=== PATIENT | male | born 1990 ===

== ENCOUNTER 2025-05-05 18:44 | Emergency (ER) | payer MEDICAID, OTHER ==
[2025-05-05 19:24] LABS: BASOPHILS ABSOLUTE AUTO 0.05 K/uL (0.00-0.10); BASOPHILS PERCENT AUTO 0.4 % (0.1-1.3); EOSINOPHILS ABSOLUTE AUTO 0.12 K/uL (0.00-0.40); EOSINOPHILS PERCENT AUTO 0.8 % (0.0-5.4); IMMATURE GRAN ABSOLUTE AUTO 0.06 K/uL (0.00-0.23); IMMATURE GRAN PERCENT AUTO 0.4 % (0.0-0.7); LYMPHOCYTES ABSOLUTE AUTO 1.54 K/uL (0.8-3.3); LYMPHOCYTES PERCENT AUTO 10.8 % (11.4-47.7); MONOCYTES ABSOLUTE AUTO 0.70 K/uL (0.20-0.90); MONOCYTES PERCENT AUTO 4.9 % (3.3-12.6); NEUTROPHILS ABSOLUTE AUTO 11.81 K/uL (1.0-7.6); NEUTROPHILS PERCENT AUTO 82.7 % (40.0-78.1); PLATELET COUNT,PLT 287 K/uL (130-375); RED BLOOD CELL COUNT 4.31 M/uL (4.14-5.76); WHITE BLOOD CELL COUNT,WBC 14.3 K/uL (3.2-11.0)
[2025-05-05] MEDS: Ondansetron 4 MG/2 ML SDV IVPUSH ONE (19:27)
[2025-05-05] MEDS: fentaNYL 100 MCG/2 ML SDV IVPUSH ONE (19:27)
[2025-05-05 19:28] LABS: APPEARANCE,URINE CLEAR (CLEAR); GLUCOSE,URINE NEGATIVE (NEGATIVE); OCCULT BLOOD,URINE NEGATIVE (NEGATIVE)
[2025-05-05 19:40] LABS: BLOOD UREA NITROGEN,BUN 9.0 mg/dL (7-18); CARBON DIOXIDE,CO2 28.0 mmol/L (21-32); CHLORIDE,CL 103.0 mmol/L (100-108); CREATININE 0.8 mg/dL (0.8-1.3); EST CRCL DRUG DOSING (CG) 156.97 mL/min; ESTIMATED GFR 120.0 mL/min (>60); GLUCOSE RANDOM 107.0 mg/dL (74-106); POTASSIUM,K 3.6 mmol/L (3.6-5.2); SODIUM,NA 138.0 mmol/L (140-148)
[2025-05-05] MEDS: Iopamidol 612 MG/ML 100 ML Bottle IV SCH (20:00)
[2025-05-05] MEDS ORDERED: Bacitracin Oint 1 GM U/D Packet TOP ONE (20:34)
== END 2025-05-05 21:28 | disposition home or self-care (01) ==
LOC: JP.ED 18:44
DX: S42.111A Displaced fracture of body of scapula, right shoulder, initial encounter for closed fracture (principal); S30.1XXA Contusion of abdominal wall, initial encounter; V29.99XA Rider (driver) (passenger) of other motorcycle injured in unspecified traffic accident, initial encounter
CPT/HCPCS: 36415; 71260; 74177; 80048; 81003; 85025; 96374; 96375; 99284; J1171; J2405; J3010; Q9967